=== PATIENT | female | born 1970 ===

== ENCOUNTER 2023-05-16 12:37 | Outpatient (AMB) | payer OTHER, SELFPAY ==
--- NOTE | 2023-05-16 12:54 | MHC.OFFVIS ---
Intake Vital Signs 05/16/23 13:00 Height 5 ft 1 in Weight 207 lb BMI 39.1 BP 126/70 Blood Pressure Location Rt brachial Position Sitting Respiration 17 Pulse 71 Pulse Source Pulse Oximeter Pulse Oximetry (%) 98 Oxygen Delivery Method Room Air Intake Visit Reasons: E-LAUNCH CHECK OUT: Neck Mass/ Left Arm Weakness-CONF Intake Note: Pt presents to the office for new patient evaluation for left arm weakness. Group Fitness Assistant Department Head Required: No Allergies meloxicam Allergy (Intermediate, Verified 05/16/23 13:00) Rash Opioids - Morphine Analogues Allergy (Intermediate, Verified 05/16/23 13:00) Anaphylaxis Sulfa (Sulfonamide Antibiotics) Allergy (Unknown, Verified 05/16/23 12:54) GI upset, vomiting Medication List - Last Reconciled 05/16/23 by Remedios Talavera MD albuterol sulfate 90 mcg/actuation 2 inhalations inhalation Q6H PRN albuterol sulfate 2.5 mg inhalation Q4-6H PRN amitriptyline 25 mg PO DAILY budesonide-formoterol 160-4.5 mcg/actuation (Symbicort) 2 puffs inhalation BID cetirizine (Zyrtec) 10 mg PO DAILY PRN docusate sodium (Colace) 100 mg PO DAILY fluticasone propionate 50 mcg/actuation 1 spray intranasal QDAY hydrochlorothiazide 25 mg PO DAILY hydroxyzine HCl 25 mg PO TID PRN ketotifen fumarate 0.025%(0.035%) (Allergy Eye (ketotifen)) 1 drp ophthalmic (eye) BID metformin 500 mg PO DAILY montelukast (Singulair) 10 mg PO DAILY sennosides-docusate sodium 8.6-50 mg 1 tab-cap PO BEDTIME HPI HPI Comments History of Present Illness Details 52y/o female comes for neurological evaluation of left hand weakness 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 4-5 months ago she woke up in the middle of the night with left face twitching and left UE numbness ? weakness, stuttering . It lasted for about a minute but had speech stuttering for 2 days she went to her PCP at [facility] . Her Blood pressure was high , she declined to go to ER. she was started on BP medication. she also noted swelling in her left neck - which was evaluated with a CT scan - no diagnosis. she reports episodic neck pain She was diagnosed with Charcot Katharine disease ( Fh/o CMT ) about 6 years ago and has corry foot weakness and cramps. [facility] Medical History (Updated 05/16/23 @ 13:32 by Remedios Talavera MD) Charcot-Katharine disease Mild sleep apnea Arthritis HTN (hypertension) Prediabetes Depression Anxiety Plantar fasciitis Umbilical hernia Venous insufficiency Epicondylitis, lateral, right Dislocation of left patella GERD (gastroesophageal reflux disease) Dyslipidemia Asthma Carpal tunnel syndrome Ovarian cancer Surgical History History of surgery on lower extremity History of appendectomy H/O umbilical hernia repair H/O total hysterectomy Family History Mother Charcot-Katharine disease HTN (hypertension) Arthritis Social History Household Members: Family Household Members Other:: Mother Housing: Apartment Alcohol intake: current Comment: occasional Patient Tobacco Use Status: Never used Tobacco Use of substances other than those prescribed or required for medical reasons: No Physical Exam Vital Signs: Last Vital Signs Pulse 71 05/16/23 13:00 Resp 17 05/16/23 13:00 BP 126/70 05/16/23 13:00 Pulse Ox 98 05/16/23 13:00 Oxygen Delivery Method Room Air 05/16/23 13:00 BMI result Body Mass Index 39.1 Const Orientation/consciousness: patient oriented x3 Eyes Pupils: Equal, round and reactive pupils present Neuro Other: weakness of corry foot dorsiflexion Mild decreased PP and light touch in foot General: patient oriented x3, tone normal, moves all extremities and no focal motor deficits Cranial nerves: Yes Facial sensation intact/muscles of mastication intact, Yes Equal, round and reactive pupils present, Yes Nystagmus not present, Yes Normal facial strength present, Yes Midline tongue present and Yes Symmetric palate elevation present Cognition (Neuro): normal cognition Gait exam (Neuro): Antalgic gait present Motor exam (neuro): 5/5 motor strength present throughout, no tremor noted and Normal motor muscle tone present throughout Deep tendon reflexes (DTR's): Right triceps reflex intensity grade: 1+, Left triceps reflex intensity grade: 1+, Rt Biceps (C5, C6): 1+, Left biceps reflex intensity grade: 1+, Right brachioradialis reflex intensity grade: 1+, Left brachioradialis reflex intensity grade: 1+, Right patellar reflex intensity grade: 1+, Left patellar reflex intensity grade: 1+, Right ankle reflex intensity grade: 0 and Left ankle reflex intensity grade: 0 Coordination: [id number] test normal Assessment & Plan Assessment & Plan (1) 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 F/u with Pulmonary for Sleep apnea Orders: Orders NE electromyogram (EMG) Today G56.00 - Carpal tunnel syndrome, unspecified upper limb, G60.0 - Hereditary motor and sensory neuropathy NE nerve conduction velocity Today G56.00 - Carpal tunnel syndrome, unspecified upper limb, G60.0 - Hereditary motor and sensory neuropathy Medications: New magnesium oxide 400 mg PO BEDTIME 30 tabs 6RF Coding Level of Care Code Est Pt Level 4 (62738) Diagnoses Charcot-Katharine disease G60.0 Carpal tunnel syndrome G56.00
[2023-05-16 13:00] VITALS: BP 126/70; PULSE 71; RESP 17; O2SAT 98; BMI 39.1
== END 2023-05-16 13:45 | disposition home or self-care (01) ==
LOC: HO.HSMS 12:38
PROVIDERS: PCP Nurse Practitioner Primary Care; Visit Provider Psychiatry & Neurology Neurology
DX: G60.0 Hereditary motor and sensory neuropathy (principal); G56.00 Carpal tunnel syndrome, unspecified upper limb
CPT/HCPCS: 99214

== ENCOUNTER → 2023-05-16 12:37 | Outpatient (BNVA) | payer OTHER, SELFPAY | PROVIDERS: PCP Nurse Practitioner Primary Care; Visit Provider Psychiatry & Neurology Neurology | DX: G60.0 Hereditary motor and sensory neuropathy (principal); G56.00 Carpal tunnel syndrome, unspecified upper limb | CPT/HCPCS: 99212 ==

== ENCOUNTER 2023-09-18 11:02 | Outpatient (AMB) | payer OTHER, SELFPAY ==
--- NOTE | 2023-09-18 11:16 | MHC.OFFVIS ---
Vital Signs 09/18/23 11:18 Height 5 ft 1 in Weight 206 lb 2 oz BMI 38.9 BP 118/68 Blood Pressure Location Rt brachial Position Sitting Respiration 16 Pulse 74 Pulse Source Pulse Oximeter Pulse Oximetry (%) 97 Oxygen Delivery Method Room Air Intake Visit Reasons: 4 month F/U - Confirmed Intake Note: Pt presents for a 4 month follow up for Charcot-Katharine Disease. Pt has c/o dropping things more frequently as she doesn't have any demand manager on her finger tips. Leaf Conditioner Helper Required: No Allergies meloxicam Allergy (Intermediate, Verified 09/18/23 11:18) Rash Opioids - Morphine Analogues Allergy (Intermediate, Verified 09/18/23 11:18) Anaphylaxis Sulfa (Sulfonamide Antibiotics) Allergy (Unknown, Verified 09/18/23 11:18) GI upset, vomiting Medication List - Last Reconciled 09/18/23 by Remedios Talavera MD albuterol sulfate 90 mcg/actuation 2 inhalations inhalation Q6H PRN albuterol sulfate 2.5 mg inhalation Q4-6H PRN budesonide-formoterol 160-4.5 mcg/actuation (Symbicort) 2 puffs inhalation BID cetirizine (Zyrtec) 10 mg PO DAILY PRN clobetasol 0.05% 1 appl topical DAILY docusate sodium (Colace) 100 mg PO DAILY fluticasone propionate 50 mcg/actuation 1 spray intranasal QDAY gabapentin 1-3 caps orally bedtime; hydrochlorothiazide 25 mg PO DAILY hydroxyzine HCl 25 mg PO TID PRN ketotifen fumarate 0.025%(0.035%) (Allergy Eye (ketotifen)) 1 drp ophthalmic (eye) BID magnesium oxide 400 mg PO BEDTIME metformin 500 mg PO DAILY montelukast (Singulair) 10 mg PO DAILY sennosides-docusate sodium 8.6-50 mg 1 tab-cap PO BEDTIME HPI Comments Details: 53y/o female comes for follow up of left hand weakness she did not have emg yet . she is using wrist splints which is helping her right hadn but still lindsey sleft hand issues she is on magnesium now - but still has cramps she had recent worsening of asthma - was treated with steroids and nebulizers but she developed a rash in her left distal UE and left foot.she was prescrbed some topical treatment and is better. 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 4-5 months ago she woke up in the middle of the night with left face twitching and left UE numbness ? weakness, stuttering . It lasted for about a minute but had speech stuttering for 2 days she went to her PCP at [facility] . Her Blood pressure was high , she declined to go to ER. she was started on BP medication. she also noted swelling in her left neck - which was evaluated with a CT scan - no diagnosis. she reports episodic neck pain She was diagnosed with Charcot Katharine disease ( Fh/o CMT ) about 6 years ago and has corry foot weakness and cramps. [facility] Medical History Charcot-Katharine disease Mild sleep apnea Arthritis HTN (hypertension) Prediabetes Depression Anxiety Plantar fasciitis Umbilical hernia Venous insufficiency Epicondylitis, lateral, right Dislocation of left patella GERD (gastroesophageal reflux disease) Dyslipidemia Asthma Carpal tunnel syndrome Ovarian cancer Surgical History History of surgery on lower extremity History of appendectomy H/O umbilical hernia repair H/O total hysterectomy Family History Mother Charcot-Katharine disease HTN (hypertension) Arthritis Social History Household Members: Family Household Members Other:: Mother Housing: Apartment Alcohol intake: current Comment: occasional Patient Tobacco Use Status: Never used Tobacco Physical Exam Vital Signs: Last Vital Signs Pulse 74 09/18/23 11:18 Resp 16 09/18/23 11:18 BP 118/68 09/18/23 11:18 Pulse Ox 97 09/18/23 11:18 Oxygen Delivery Method Room Air 09/18/23 11:18 BMI result Body Mass Index 38.9 Const Orientation/consciousness: patient oriented x3 Eyes Pupils: Equal, round and reactive pupils present Neuro Other: weakness of corry foot dorsiflexion Mild decreased PP and light touch in foot General: patient oriented x3, tone normal, moves all extremities and no focal motor deficits Cranial nerves: Yes Facial sensation intact/muscles of mastication intact, Yes Equal, round and reactive pupils present, Yes Nystagmus not present, Yes Normal facial strength present, Yes Midline tongue present and Yes Symmetric palate elevation present Cognition (Neuro): normal cognition Gait exam (Neuro): Antalgic gait present Motor exam (neuro): 5/5 motor strength present throughout, no tremor noted and Normal motor muscle tone present throughout Coordination: [id number] test normal Assessment & Plan Assessment & Plan (1) 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 I will trail her on gabapentin 100mg 1-3 caps qhs F/u with Pulmonary for Sleep apnea Medications: New gabapentin 1-3 caps orally bedtime; 90 caps 6RF Coding Level of Care Code Est Pt Level 4 (88800) Diagnoses Charcot-Katharine disease G60.0 Carpal tunnel syndrome G56.00
[2023-09-18 11:18] VITALS: BP 118/68; PULSE 74; RESP 16; O2SAT 97; BMI 38.9
== END 2023-09-18 11:54 | disposition home or self-care (01) ==
PROVIDERS: PCP Nurse Practitioner Primary Care; Visit Provider Psychiatry & Neurology Neurology
DX: G60.0 Hereditary motor and sensory neuropathy (principal); G56.00 Carpal tunnel syndrome, unspecified upper limb
CPT/HCPCS: 99214

== ENCOUNTER → 2023-09-18 11:02 | Outpatient (BNVA) | payer OTHER, SELFPAY | PROVIDERS: PCP Nurse Practitioner Primary Care; Visit Provider Psychiatry & Neurology Neurology | DX: G60.0 Hereditary motor and sensory neuropathy (principal); G56.00 Carpal tunnel syndrome, unspecified upper limb | CPT/HCPCS: 99212 ==

== ENCOUNTER 2023-11-09 12:36 | Outpatient (REF) | payer OTHER, SELFPAY ==
--- NOTE | 2023-11-09 12:40 | EMG_ITS ---
Chief complaint: Left hand feels weak and numb. Ankle never improved after fracture/surgery of left lower leg/ankle. High arches. Bilateral footdrop. Hammertoes developed recently. 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 Mother has similar symptoms. History of abdominal cancer status post chemo per patient report. Reason for referral: Evaluate for any focal entrapment Referred by: Dr. Talavera Procedure done: Upper and lower extremities NCS/EMG Precautions and/or limitations: None The limb temperature was monitored continuously and remained between 32-36 degrees C during the performance of the NCS. Nerve Conduction Studies Anti Sensory Summary Table ?Stim Site NR Onset (ms) Norm Onset (ms) Peak (ms) Norm Peak (ms) O-P Amp (?V) Norm O-P Amp Site1 Site2 Delta-0 (ms) Dist (cm) Magdaleno (m/s) Norm Magdaleno (m/s) Left Median Anti Sensory (2nd Digit) Wrist ? 3.5 4.5 <3.6 17.3 >10 Wrist 2nd Digit 3.5 14.0 40 Left Radial Anti Sensory (Thumb) Forearm ? 1.5 2.4 <3.1 6.2 Forearm Thumb 1.5 0.0 Left Sural Anti Sensory (Lat Mall) Calf NR <4.0 >5.0 Calf Lat Mall 14.0 Right Sural Anti Sensory (Lat Mall) Calf NR <4.0 >5.0 Calf Lat Mall 14.0 Left Ulnar Anti Sensory (5th Digit) Wrist ? 2.5 3.4 <3.7 6.2 >15.0 Wrist 5th Digit 2.5 14.0 56 Motor Summary Table ?Stim Site NR Onset (ms) Norm Onset (ms) O-P Amp (mV) Norm O-P Amp iAmp (mV) Amp (1st) (%) Site1 Site2 Delta-0 (ms) Dist (cm) Magdaleno (m/s) Norm Magdaleno (m/s) Left Median Motor (Abd Poll Brev) Wrist ? 4.8 <3.9 11.1 >4.5 13.8 100.0 Elbow Wrist 4.5 19.0 42 >45 Elbow ? 9.3 9.4 11.9 84.7 Left Peroneal Motor (Ext Dig Brev) Ankle NR <4.0 >2.5 Ankle Ext Dig Brev 0.0 B Fib NR B Fib Ankle 0.0 >40 Right Peroneal Motor (Ext Dig Brev) Ankle NR <4.0 >2.5 Ankle Ext Dig Brev 0.0 B Fib NR B Fib Ankle 0.0 >40 Poplt NR Poplt B Fib 0.0 >40 Right Tibial Motor (Abd Kathleen Brev) Ankle NR <5 >2.5 Ankle Abd Kathleen Brev 0.0 Knee NR Knee Ankle 0.0 >40 Left Ulnar Motor (Abd Dig Minimi) Wrist ? 3.0 <3.0 5.7 >5 6.5 100.0 B Elbow Wrist 4.2 16.0 38 >45 B Elbow ? 7.2 4.5 5.3 78.9 A Elbow B Elbow 1.9 10.0 53 >45 A Elbow ? 9.1 3.4 4.1 59.6 EMG ?Side Muscle Nerve Root Ins Act Fibs Psw Amp Dur Poly Recrt Int Pat Comment Left 1stDorInt Ulnar C8-T1 Nml Nml Nml Nml Nml 0 Nml Complete Left FlexCarRad Median C6-7 Nml Nml Nml Nml Nml 0 Nml Complete Left Biceps Musculocut C5-6 Nml Nml Nml Nml Nml 0 Nml Complete Left Triceps Radial C6-7-8 Nml Nml Nml Nml Nml 0 Nml Complete Left Deltoid Axillary C5-6 Nml Nml Nml Nml Nml 0 Nml Complete Right AbdHallucis MedPlantar S1-2 Nml Nml Nml Nml Nml 0 Nml Complete Right AntTibialis Dp Br Peron L4-5 Nml Nml Nml Nml Incr 1+ Nml Complete Right PostTibialis Tibial L5, S1 Nml Nml Nml Nml Nml 0 Nml Complete Right MedGastroc Tibial S1-2 Nml Nml Nml Nml Nml 0 Nml Complete Right VastusMed Femoral L2-4 Nml Nml Nml Nml Nml 0 Nml Complete FINDINGS: Left median motor nerve showed prolonged distal latency, normal amplitude and slow conduction velocity. Left ulnar motor nerve showed normal distal latency, normal amplitude and slow conduction velocity distally. Left median sensory nerve showed prolonged peak latency with normal amplitude. Left ulnar and radial sensory nerves showed normal peak latency but small amplitude. Right peroneal, bilateral tibial and bilateral sural nerves did not show any responses. Concentric needle EMG was performed in selected muscles of the left upper and right lower extremities. Study revealed signs of electric abnormalities as shown in the table above. Chronic reinnervation seen on right tibialis anterior, increased duration and polyphasia. Patient deferred testing of cervical or lumbar paraspinals. IMPRESSION: 1. This is an abnormal study. 2. 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 The lack of asymmetry or conduction block suggests an inherited disorder. 3. Findings are diffuse with uniform slowing of conduction velocities rather than focal; therefore no electrodiagnostic evidence for focal entrapment of median or ulnar nerves. 4. There is no electrodiagnostic evidence for cervical or lumbar radiculopathy. Thank you for your kind referral. Devorah Win MD, BETITO Board Certified, [place] Board [employer] and Rehabilitation (ABPMR) Board Certified, [place] Board of Electrodiagnostic Medicine (ABEM) CODIN 88444 x 2 MTDD
== END 2023-11-09 12:37 | disposition home or self-care (01) ==
LOC: HO.NEURO 12:36
PROVIDERS: PCP Physician Assistant Medical; Visit Provider Psychiatry & Neurology Neurology
DX: G60.0 Hereditary motor and sensory neuropathy (principal); G56.03 Carpal tunnel syndrome, bilateral upper limbs
CPT/HCPCS: 95886; 95911

== ENCOUNTER → 2023-11-09 12:40 | Outpatient (BNV) | payer OTHER, SELFPAY | PROVIDERS: PCP Physician Assistant Medical; Visit Provider Physical Medicine & Rehabilitation | DX: G60.0 Hereditary motor and sensory neuropathy (principal); R20.2 Paresthesia of skin; R20.0 Anesthesia of skin | CPT/HCPCS: 95886; 95911 ==

== ENCOUNTER 2024-02-19 13:44 | Outpatient (AMB) | payer OTHER, SELFPAY ==
[2024-02-19 14:26] VITALS: BMI 39.7
--- NOTE | 2024-02-19 14:26 | A.OFFVIS_ITS ---
Vital Signs 02/19/24 14:26 Height 5 ft 1 in Weight 210 lb BMI 39.7 Intake Visit Reasons: 4 month F/U - Confirmed Intake Note: Patient presents for 4 month follow up. Allergies meloxicam Allergy (Intermediate, Verified 02/19/24 14:30) Rash Opioids - Morphine Analogues Allergy (Intermediate, Verified 02/19/24 14:30) Anaphylaxis Sulfa (Sulfonamide Antibiotics) Allergy (Unknown, Verified 02/19/24 14:30) GI upset, vomiting HPI Comments Details: 53y/o female comes for follow up of left hand weakness she did not have emg yet . she is using wrist splints which is helping her right hand and left hand issues she is on magnesium now - but still has cramps she had recent worsening of asthma - was treated with steroids and nebulizers but she developed a rash in her left distal UE and left foot.she was prescribed some topical treatment and is better. 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 4-5 months ago she woke up in the middle of the night with left face twitching and left UE numbness ? weakness, stuttering . It lasted for about a minute but had speech stuttering for 2 days she went to her PCP at [facility] . Her Blood pressure was high , she declined to go to ER. she was started on BP medication. she also noted swelling in her left neck - which was evaluated with a CT scan - no diagnosis. she reports episodic neck pain She was diagnosed with Charcot Katharine disease ( Fh/o CMT ) about 6 years ago and has corry foot weakness and cramps. [facility] Medical History (Updated 02/19/24 @ 14:41 by Remedios Talavera MD) Muscle cramp, nocturnal Charcot-Katharine disease Mild sleep apnea Arthritis HTN (hypertension) Prediabetes Depression Anxiety Plantar fasciitis Umbilical hernia Venous insufficiency Epicondylitis, lateral, right Dislocation of left patella GERD (gastroesophageal reflux disease) Dyslipidemia Asthma Carpal tunnel syndrome Ovarian cancer Surgical History History of surgery on lower extremity History of appendectomy H/O umbilical hernia repair H/O total hysterectomy Family History Mother Charcot-Katharine disease HTN (hypertension) Arthritis Social History Household Members: Family Household Members Other:: Mother Housing: Apartment Alcohol intake: current Comment: occasional Patient Tobacco Use Status: Never used Tobacco Physical Exam Vital Signs: BMI result Body Mass Index 39.7 Const Orientation/consciousness: patient oriented x3 Eyes Pupils: Equal, round and reactive pupils present Neuro Other: weakness of corry foot dorsiflexion Mild decreased PP and light touch in foot General: patient oriented x3, tone normal, moves all extremities and no focal motor deficits Cranial nerves: Yes Facial sensation intact/muscles of mastication intact, Yes Equal, round and reactive pupils present, Yes Nystagmus not present, Yes Normal facial strength present, Yes Midline tongue present and Yes Symmetric palate elevation present Cognition (Neuro): normal cognition Gait exam (Neuro): Antalgic gait present Motor exam (neuro): 5/5 motor strength present throughout, no tremor noted and Normal motor muscle tone present throughout Coordination: [id number] test normal Results Reviewed Results Reviewed: 10/2023 EMG This is an abnormal study. 2. 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 The lack of asymmetry or conduction block suggests an inherited disorder. 3. Findings are diffuse with uniform slowing of conduction velocities rather rossy n focal; therefore no electrodiagnostic evidence for focal entrapment of median or ulnar nerves. 4. There is no electrodiagnostic evidence for cervical or lumbar radiculopathy. 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
== END 2024-02-19 14:54 | disposition home or self-care (01) ==
PROVIDERS: PCP Nurse Practitioner Primary Care; Visit Provider Psychiatry & Neurology Neurology
DX: G60.0 Hereditary motor and sensory neuropathy (principal); R25.2 Cramp and spasm
CPT/HCPCS: 99214

== ENCOUNTER → 2024-02-19 13:44 | Outpatient (BNVA) | payer OTHER, SELFPAY | PROVIDERS: PCP Nurse Practitioner Primary Care; Visit Provider Psychiatry & Neurology Neurology | DX: G60.0 Hereditary motor and sensory neuropathy (principal); R25.2 Cramp and spasm | CPT/HCPCS: 99212 ==